=== PATIENT | female | born 1950 | race Hispanic/Latino ===

== ENCOUNTER 2017-10-11 11:07 | Outpatient (CLI) | payer MEDICARE ==
--- NOTE | 2017-10-11 14:34 | MRI ---
MRI RIGHT SHOULDER WITHOUT CONTRAST: HISTORY: M25.51, right shoulder pain, rotator cuff tear. COMPARISON: None. FINDINGS: BICEPS TENDON: There is moderate extraarticular tenosynovitis. There is marked thickening in the intraarticular bic eps tendon. LABRUM: The labrum is intact without tear. ROTATOR CUFF: Full-thickness, full-width tear supraspinatus tendon. There is moderate interstitial and under surfa ce fraying and tearing of the infraspinatus tendon. The supraspinatus tendon fibers are markedly fra yed and are at the level of the mid humeral head with a gap of 2.1 cm. SOFT TISSUES: There is extensive synovitis of the subscapular bursa. Large subacromial/subdeltoid bursal effusion. BONES: Type I acromion. No acute fracture. MUSCLES: Less than 50% atrophy of the supraspinatus muscle. IMPRESSION: 1. Full-thickness full-width tear of the supraspinatus tendon with a 2.1 cm gap with fiber edge at t he mid humeral head. There is extensive fraying and tendinosis of the tendon fibers. 2. Severe intraarticular tendinosis of the biceps tendon with the size being larger than what would fit through the normal rotator interval and likely causing an impingement. 3. Large joint effusion with extensive synovitis. 4. Moderate-sized subacromial/subdeltoid bursal effusion. 5. Intact glenoid labrum. 6. Only mild atrophy of the supraspinatus muscle. POS: [facility]
== END 2017-10-11 11:08 | disposition home or self-care (01) ==
LOC: MRI 11:07
PROVIDERS: ATTEND Orthopaedic Surgery
DX: M25.511 Pain in right shoulder (principal); S46.811A Strain of other muscles, fascia and tendons at shoulder and upper arm level, right arm, initial encounter; M75.21 Bicipital tendinitis, right shoulder; M25.411 Effusion, right shoulder; M65.811 Other synovitis and tenosynovitis, right shoulder; S43.431A Superior glenoid labrum lesion of right shoulder, initial encounter; M89.8X1 Other specified disorders of bone, shoulder

== ENCOUNTER 2017-11-23 09:48 | Outpatient (CLI) | payer MEDICARE ==
[2017-11-23 10:27] LABS: Hemoglobin 14.3 g/dL (12.0-16.0); Mean Corpuscular HGB CONC 33.7 g/dL (32.0-36.0); Mean Corpuscular Hemoglobin 30.6 pg (27.0-31.0); Mean Corpuscular Volume 90.9 fl (81.0-99.0); Mean Platelet Volume 9.1 fL (7.4-10.4); Platelet Count 185 thou/uL (130-400); RBC Distribution Width 12.3 % (11.5-14.5); Red Blood Cell (RBC) Count 4.65 mill/uL (4.20-5.40); White Blood Cell (WBC) Count 5.3 thou/uL (4.8-10.8)
[2017-11-23 10:28] LABS: Bilirubin Negative (Negative); Blood, Urine Negative (Negative); Clarity CLEAR (Clear); Glucose, Urine (Dipstick) Negative (Negative); Leukocyte Small (Negative); Nitrite Negative (Negative); Protein, Urine (Dipstick) Negative (Neg-Trace); Specific Gravity, Urine 1.021 (1.002-1.036); Urobilinogen 0.2 mg/dL (0.2-1.0)
[2017-11-23 10:31] LABS: Bacteria/HPF None Seen HPF (None Seen); Hyaline Casts/LPF 0-3 HYALINE CAST LPF (0-3 Hyaline); Pathc Cast-AUWi Flag 0.13 (0-2.49); Squamous Epithelial 0-3 HPF (0-3)
[2017-11-23 10:41] LABS: Anion Gap 10 mmol/L (10-20); BUN (Urea Nitrogen) 11 mg/dL (9.8-20.1); Calc. Creatinine Clearance 0 mL/min (70-130); Calcium 9.6 mg/dL (7.8-10.44); Carbon Dioxide 30 mmol/L (23-31); Chloride 104 mmol/L (98-107); Estimated GFR-MDRD 85; Glucose 171 mg/dL (80-115); Potassium 3.9 mmol/L (3.5-5.1); Sodium 140 mmol/L (136-145)
--- NOTE | 2017-11-23 16:01 | EKG ---
Test Reason : Blood Pressure : / mmHG Vent. Rate : 071 BPM Atrial Rate : 071 BPM P-R Int : 170 ms QRS Dur : 082 ms QT Int : 422 ms P-R-T Axes : 029 022 077 degrees QTc Int : 458 ms Normal sinus rhythm Low voltage QRS Nonspecific T wave abnormality Abnormal ECG Confirmed by WENDY CHOU ([id number]) on 11/23/2017 4:01:11 PM Referred By: CLARITA Confirmed By:WENDY CHOU
== END 2017-11-23 09:49 | disposition home or self-care (01) ==
LOC: LABBT 09:48
PROVIDERS: ATTEND Orthopaedic Surgery
DX: Z01.818 Encounter for other preprocedural examination (principal); M75.101 Unspecified rotator cuff tear or rupture of right shoulder, not specified as traumatic
CPT/HCPCS: 80048; 81001; 85027; 93005; 93010

== ENCOUNTER 2017-11-25 05:41 | Day surgery (SDC) | payer MEDICARE ==
[2017-11-23 10:21] VITALS: BMI 30.9
[2017-11-25] MEDS ORDERED: CEFAZOLIN/Water 2 GM/20 ML SYRINGE ONE (06:27)
[2017-11-25] MEDS ORDERED: Lidocaine 1% (PF) 30 ML VIAL ONE (06:30)
[2017-11-25] MEDS ORDERED: Midazolam HCl 2 mg/2 ml Vial ONE (06:30)
[2017-11-25] MEDS ORDERED: Fentanyl 100 MCG/2 ML VIAL ONE (06:30)
[2017-11-25] MEDS ORDERED: Lidocaine 1% w/Epinephrine 1:200K 30 ML VIAL ONE (06:32)
[2017-11-25] MEDS ORDERED: traMADol HCl 50 MG TAB PO PRN ×2 (06:56)
[2017-11-25] MEDS ORDERED: Ropivacaine 0.2% 550 ML 550 ML NERVE BLCK SCH (06:56)
[2017-11-25] MEDS ORDERED: HYDROcodone/Acetaminophen 10/325 mg Tablet PO PRN ×2 (06:56)
[2017-11-25] MEDS ORDERED: Ondansetron HCl/PF 4 MG/2 ML Vial IVP PRN (06:56)
[2017-11-25] MEDS ORDERED: Ketorolac Tromethamine 30 MG/ML VIAL IVP PRN (06:56)
[2017-11-25] MEDS ORDERED: Zolpidem Tartrate 5 MG TAB PO PRN (06:56)
[2017-11-25] MEDS ORDERED: Promethazine HCl 25 MG/ML VIAL IM PRN (06:56)
[2017-11-25] MEDS ORDERED: Fentanyl 100 MCG/2 ML VIAL IV PRN (06:58)
[2017-11-25] MEDS ORDERED: Ropivacaine 0.2% HCl/PF (40 MG/20 ML VIAL) ONE (16:34)
[2017-11-25] MEDS ORDERED: Ropivacaine 0.5% HCl/PF (150 MG/30 ML VIAL) ONE (16:34)
[2017-11-25] MEDS ORDERED: Glycopyrrolate 0.2 MG/ML 5 ML SYRINGE ONE (16:51)
[2017-11-25] MEDS ORDERED: Ketorolac Tromethamine 30 MG/ML VIAL ONE (16:51)
[2017-11-25] MEDS ORDERED: PROPOFOL 200 MG/20 ML VIAL ONE (16:51)
[2017-11-25] MEDS ORDERED: PHENYLEPHRINE-NS 100 MCG/ML 10 ML SYRINGE ONE (16:51)
[2017-11-25] MEDS ORDERED: Dexamethasone 20 MG/5 ML VIAL ONE (16:51)
[2017-11-25] MEDS ORDERED: Ondansetron HCl/PF 4 MG/2 ML Vial ONE (16:51)
[2017-11-25] MEDS ORDERED: Lidocaine 1% PF 5 ML VIAL ONE (16:51)
--- NOTE | 2017-11-25 21:24 | OP ---
DATE OF PROCEDURE: 11/25/2017 PREOPERATIVE DIAGNOSES: 1. Right rotator cuff tear. 2. Biceps tendinosis. 3. Grade 1 atrophy. POSTOPERATIVE DIAGNOSES: 1. Right full thickness supraspinatus tear with retraction to joint line. 2. Right full thickness infraspinatus tear with retraction to joint line, biceps tendonopathy greate r than 30% partial tearing subscapularis. PROCEDURES PERFORMED: 1. Right arthroscopic rotator cuff repair. 2. Biceps tenotomy. STAFF: Phil Sawant M.D. CHORAL DIRECTOR: Giovanny Hatch PA-C. ANESTHESIA: Dr. Mock. The patient received general endotracheal intubation with interscalene block . ESTIMATED BLOOD LOSS: 30 mL TOURNIQUET TIME: None. IMPLANTS: x3 5.5 corkscrews and x2 4.75 SwiveLocks. ANTIBIOTICS: Ancef 2 grams. COMPLICATIONS: None. HISTORY OF PRESENT ILLNESS: Ms. Sheffield is a pleasant 67-year-old female who presented to me with r ight shoulder pain. The patient is a right-hand dominant hairdresser. She fell back in 08/07/2017, she continued to have pain and taking conservative care, but continued to have pain despite nonoperat kwaku intervention. The patient had MRI evidence of a right full thickness supraspinatus and infraspin atus tear with retraction to the joint line. I discussed with patient, some biceps tendinopathy, acr omioclavicular joint degenerative changes. I discussed with patient the risks and benefits of arthro scopic right rotator cuff repair with biceps tenotomy versus tenodesis, subacromial decompression. I discussed risks and benefits to pain, scar, bleeding, infection, damage to vital structures, failure of repair, need for further surgeries, damage to vital structures, loss of life or limb. The patien t understood these risks and benefits and elected to proceed. DESCRIPTION OF PROCEDURE: Timeout was performed designating the patient's right upper extremity as t he operative site based on sight, consents, markings. After completion of timeout, the patient's rig ht upper extremity was prepped and draped in a sterile fashion. Posterior working portal and anterio r working portal was placed. Patient has some significant synovitis and inflammation around the cuff . There was a full thickness tear, which was obvious upon entering and looking up and seeing the sup raspinatus, infraspinatus gone. The biceps was about 30% torn and had fraying throughout and did not feel healthy, so it was tenotomized. Subscap had some superior tearing. I controlled bleeding, mov ed subacromially, debrided off all the bursa to expose. I pulled on the cuff and it went close to it s footprint, but did not fill the entire lateral aspect of the tuberosity, so therefore I took my bur and burred the bone for bleeding bone as well as help take off about 2-4 mm of articular cartilage f or better footprint. After completion of this, I placed 3 total anchors one suture limb and 2 posteriorly. I passed all 10 suture limbs through 5 horizontal mattress sutures from front to back a nd tied from back to front, took a single limb of each and did a transosseous equivalent double row w ith 4.75 SwiveLocks. The patient's cuff was approximated. It was not perfectly repaired, but I was happy with the overall approximation, I then washed and closed with 3-0 nylon. The patient's outlook is guarded given her medical history, her profession, her diabetes, what appear s to be a chronicity and size of the tear. We will continue to follow nonoperatively for typical pos top protocol. She will be sent home with pain medications and block per Anesthesia. She will follow up in my clinic in 10-14 days.
== END 2017-11-25 11:48 | disposition home or self-care (01) ==
LOC: SDC 05:41
PROVIDERS: ATTEND Orthopaedic Surgery
PROC: 0LM14ZZ Reattachment of Right Shoulder Tendon, Percutaneous Endoscopic Approach (ICD-10-PCS; principal; 2017-11-25)
DX: M75.121 Complete rotator cuff tear or rupture of right shoulder, not specified as traumatic (principal); M75.21 Bicipital tendinitis, right shoulder; E78.00 Pure hypercholesterolemia, unspecified; E11.9 Type 2 diabetes mellitus without complications; E03.9 Hypothyroidism, unspecified; K21.9 Gastro-esophageal reflux disease without esophagitis; G89.29 Other chronic pain; M54.9 Dorsalgia, unspecified; Z87.442 Personal history of urinary calculi; Z79.84 Long term (current) use of oral hypoglycemic drugs; Z79.899 Other long term (current) drug therapy; Z88.0 Allergy status to penicillin; Z90.49 Acquired absence of other specified parts of digestive tract; Z98.890 Other specified postprocedural states
CPT/HCPCS: 29827; A4306; C1713; J1100; J1885; J2001; J2250; J2405; J2704; J2795; J3010

== ENCOUNTER 2018-06-27 11:26 | Outpatient (CLI) | payer MEDICARE | END 2018-06-27 11:27 | disposition home or self-care (01) | LOC: BICMAMMO 11:26 | PROVIDERS: ATTEND Internal Medicine | DX: Z12.31 Encounter for screening mammogram for malignant neoplasm of breast (principal); Z80.3 Family history of malignant neoplasm of breast | CPT/HCPCS: 77063; 77067 ==

== ENCOUNTER 2018-11-21 19:30 | Outpatient (CLI) | payer MEDICARE | END 2018-11-21 19:31 | disposition home or self-care (01) | LOC: SLEEPLAB 19:30 | PROVIDERS: ATTEND Internal Medicine | DX: G47.33 Obstructive sleep apnea (adult) (pediatric) (principal); G47.00 Insomnia, unspecified; R06.83 Snoring; E11.9 Type 2 diabetes mellitus without complications; G47.10 Hypersomnia, unspecified | CPT/HCPCS: 95810 ==

== ENCOUNTER 2018-12-26 20:30 | Outpatient (CLI) | payer MEDICARE | END 2018-12-26 20:31 | disposition home or self-care (01) | LOC: SLEEPLAB 20:30 | PROVIDERS: ATTEND Internal Medicine | DX: G47.33 Obstructive sleep apnea (adult) (pediatric) (principal); E11.9 Type 2 diabetes mellitus without complications; E66.9 Obesity, unspecified; G47.00 Insomnia, unspecified; R06.83 Snoring | CPT/HCPCS: 95811 ==

== ENCOUNTER 2019-06-30 12:12 | Outpatient (CLI) | payer MEDICARE ==
--- NOTE | 2019-06-30 13:28 | MMO ---
Bilateral MAMMO Bilat Screen [facility]. CLINICAL HISTORY: Patient is 68 years old and is seen for screening. The patient has the following family history of breast cancer: sister, malignant (generic). The patient has no personal history of cancer. VIEWS: The views performed were: bilateral craniocaudal with tomosynthesis and bilateral mediolateral oblique with tomosynthesis. FILMS COMPARED: The present examination has been compared to prior imaging studies performed at [facility] on 05/28/2014, 08/17/2015, 08/18/2016 and 06/27/2018. This study has been interpreted with the assistance of computer-aided detection. MAMMOGRAM FINDINGS: There are scattered fibroglandular densities. There are stable benign appearing calcifications seen in both breasts. There are also vascular calcifications. There are no suspicious masses, suspicious calcifications, or new areas of architectural distortion. IMPRESSION: THERE IS NO MAMMOGRAPHIC EVIDENCE OF MALIGNANCY. A ROUTINE FOLLOW-UP MAMMOGRAM IN 1 YEAR IS RECOMMENDED. THE RESULTS OF THIS EXAM WERE SENT TO THE PATIENT. ACR BI-RADS Category 2 - Benign finding MAMMOGRAPHY NOTE: 1. A negative mammogram report should not delay a biopsy if a dominant of clinically suspicious mass is present. 2. Approximately 10% to 15% of breast cancers are not detected by mammography. 3. Adenosis and dense breasts may obscure an underlying neoplasm. Reported by: ELIZABETH KUMAR MD Electonically Signed: [id number]
== END 2019-06-30 12:13 | disposition home or self-care (01) ==
LOC: BICMAMMO 12:12
PROVIDERS: ATTEND Internal Medicine
DX: Z12.31 Encounter for screening mammogram for malignant neoplasm of breast (principal); Z80.3 Family history of malignant neoplasm of breast
CPT/HCPCS: 77063; 77067

== ENCOUNTER 2020-07-01 12:57 | Outpatient (CLI) | payer MEDICARE ==
--- NOTE | 2020-07-01 13:22 | MMO ---
Bilateral MAMMO Bilat Screen [facility]. CLINICAL HISTORY: Patient is 69 years old and is seen for screening. The patient has the following family history of breast cancer: sister, malignant (generic). The patient has no personal history of cancer. VIEWS: The views performed were: bilateral craniocaudal with tomosynthesis and bilateral mediolateral oblique with tomosynthesis. FILMS COMPARED: The present examination has been compared to prior imaging studies performed at [facility] on 08/17/2015, 08/18/2016, 06/27/2018 and 06/30/2019. This study has been interpreted with the assistance of computer-aided detection. MAMMOGRAM FINDINGS: There are scattered fibroglandular densities. There are benign appearing calcifications seen in both breasts. There are no suspicious masses, suspicious calcifications, or new areas of architectural distortion. IMPRESSION: THERE IS NO MAMMOGRAPHIC EVIDENCE OF MALIGNANCY. A ROUTINE FOLLOW-UP MAMMOGRAM IN 1 YEAR IS RECOMMENDED. THE RESULTS OF THIS EXAM WERE SENT TO THE PATIENT. ACR BI-RADS Category 2 - Benign finding MAMMOGRAPHY NOTE: 1. A negative mammogram report should not delay a biopsy if a dominant of clinically suspicious mass is present. 2. Approximately 10% to 15% of breast cancers are not detected by mammography. 3. Adenosis and dense breasts may obscure an underlying neoplasm. Reported by: ERWIN MILLER MD Electonically Signed: [id number]
== END 2020-07-01 12:58 | disposition home or self-care (01) ==
LOC: BICMAMMO 12:57
PROVIDERS: ATTEND Internal Medicine
DX: Z12.31 Encounter for screening mammogram for malignant neoplasm of breast (principal); Z80.3 Family history of malignant neoplasm of breast
CPT/HCPCS: 77063; 77067

== ENCOUNTER 2020-12-31 08:21 | Outpatient (CLI) | payer MEDICARE | END 2020-12-31 08:22 | disposition home or self-care (01) | LOC: BICULT 08:21 | PROVIDERS: ATTEND Internal Medicine | DX: R10.10 Upper abdominal pain, unspecified (principal); R93.2 Abnormal findings on diagnostic imaging of liver and biliary tract; Z90.49 Acquired absence of other specified parts of digestive tract | CPT/HCPCS: 93975 ==

== ENCOUNTER 2021-01-13 14:36 | Outpatient (CLI) | payer MEDICARE ==
[2021-01-13] MEDS ORDERED: Iopamidol 370 76% 100 ML VIAL ONE (14:47)
== END 2021-01-13 14:37 | disposition home or self-care (01) ==
LOC: BICCT 14:36
PROVIDERS: ATTEND Internal Medicine Gastroenterology
DX: R10.12 Left upper quadrant pain (principal); R94.5 Abnormal results of liver function studies; R19.4 Change in bowel habit; K57.30 Diverticulosis of large intestine without perforation or abscess without bleeding; I86.8 Varicose veins of other specified sites
CPT/HCPCS: 74177; Q9967

== ENCOUNTER 2021-03-10 07:04 | Day surgery (SDC) | payer MEDICARE ==
[2021-03-07 11:15] VITALS: BMI 29.2
[2021-03-10 07:27] LABS: #Basophils 0.1 thou/uL (0.0-0.2); #Eosinphils 0.2 thou/uL (0.0-0.7); #Lymphocytes 3.8 thou/uL (1.20-3.40); #Monocytes 0.6 thou/uL (0.11-0.59); #Neutrophils 3.1 thou/uL (1.40-6.50); %Basophils 1.2 % (0.0-1.0); %Eosinophils 2.1 % (0.0-10.0); %Monocytes 7.1 % (0.0-10.0); %Neutrophils 40.6 % (42.0-75.0); Hemoglobin 13.8 g/dL (12.0-16.0); Mean Corpuscular Volume 93.9 fL (78.0-98.0); Mean Platelet Volume 8.9 fL (7.4-10.4); Platelet Count 159 thou/uL (130-400); RBC Distribution Width 12.2 % (11.5-14.5); Red Blood Cell (RBC) Count 4.47 mill/uL (4.20-5.40); White Blood Cell (WBC) Count 7.7 thou/uL (4.8-10.8)
[2021-03-10 07:36] LABS: INR-International Normal Ratio 0.9; PTT 25.3 sec (22.9-36.1); Prothrombin Time 12.5 sec (12.0-14.7)
[2021-03-10 08:47] VITALS: BP 116/60; TEMP 97.7
[2021-03-10] MEDS ORDERED: Lidocaine 1% PF 5 ML VIAL ONE (08:49)
[2021-03-10] MEDS ORDERED: Fentanyl 100 MCG/2 ML VIAL ONE (08:49)
[2021-03-10] MEDS ORDERED: Sodium Bicarbonate 2.5 MEQ/5 ML VIAL ONE (08:49)
[2021-03-10] MEDS ORDERED: Midazolam HCl 2 mg/2 ml Vial ONE (08:49)
[2021-03-10] MEDS ORDERED: Sodium Chloride 0.9% 10 ML ONE (10:34)
== END 2021-03-10 10:15 | disposition home or self-care (01) ==
LOC: ULT 07:04
PROVIDERS: ATTEND Internal Medicine Gastroenterology
PROC: 0FB23ZX Excision of Left Lobe Liver, Percutaneous Approach, Diagnostic (ICD-10-PCS; principal; 2021-03-10)
DX: K75.81 Nonalcoholic steatohepatitis (NASH) (principal); K74.02 Hepatic fibrosis, advanced fibrosis; G47.33 Obstructive sleep apnea (adult) (pediatric); E11.9 Type 2 diabetes mellitus without complications; E07.9 Disorder of thyroid, unspecified; J30.1 Allergic rhinitis due to pollen; Z79.84 Long term (current) use of oral hypoglycemic drugs; Z79.899 Other long term (current) drug therapy; Z88.8 Allergy status to other drugs, medicaments and biological substances
CPT/HCPCS: 47000; 76942; 85025; 85610; 85730; 88307; 88313; J2250; J3010

== ENCOUNTER 2021-08-07 11:13 | Outpatient (CLI) | payer MEDICARE | END 2021-08-07 11:14 | disposition home or self-care (01) | LOC: BICMAMMO 11:13 | PROVIDERS: ATTEND Internal Medicine | DX: Z12.31 Encounter for screening mammogram for malignant neoplasm of breast (principal); Z80.3 Family history of malignant neoplasm of breast | CPT/HCPCS: 77063; 77067 ==

== ENCOUNTER 2021-08-08 15:12 | Outpatient (CLI) | payer MEDICARE | END 2021-08-08 15:13 | disposition home or self-care (01) | LOC: BICMAMMO 15:12 | PROVIDERS: ATTEND Internal Medicine | DX: Z13.820 Encounter for screening for osteoporosis (principal); Z78.0 Asymptomatic menopausal state; Z98.890 Other specified postprocedural states | CPT/HCPCS: 77080 ==

== ENCOUNTER 2023-06-15 14:55 | Outpatient (CLI) | payer MEDICARE | END 2023-06-15 14:56 | disposition home or self-care (01) | LOC: BICMAMMO 14:55 | PROVIDERS: ATTEND Internal Medicine | DX: Z12.31 Encounter for screening mammogram for malignant neoplasm of breast (principal); N64.89 Other specified disorders of breast; Z80.3 Family history of malignant neoplasm of breast | CPT/HCPCS: 77063; 77067 ==

== ENCOUNTER → 2023-07-12 | Day surgery (SDC) | payer MEDICARE | LOC: BICULT 12:23 | PROVIDERS: ATTEND Internal Medicine | PROC: 0H9T0ZX Drainage of Right Breast, Open Approach, Diagnostic (ICD-10-PCS; principal; 2023-07-12) | PROC: 07B50ZX Excision of Right Axillary Lymphatic, Open Approach, Diagnostic (ICD-10-PCS; 2023-07-12) | DX: C50.511 Malignant neoplasm of lower-outer quadrant of right female breast (principal) | CPT/HCPCS: 19083; 38505; 88305; 88341; 88342 ==

== ENCOUNTER 2023-07-28 11:00 | Outpatient (CLI) | payer MEDICARE | END 2023-07-28 11:01 | disposition home or self-care (01) | LOC: PET 11:00 | PROVIDERS: ATTEND Internal Medicine Hematology & Oncology | DX: C50.511 Malignant neoplasm of lower-outer quadrant of right female breast (principal); C77.9 Secondary and unspecified malignant neoplasm of lymph node, unspecified; E11.9 Type 2 diabetes mellitus without complications | CPT/HCPCS: 78815; A9552 ==

== ENCOUNTER 2023-08-10 11:05 | Outpatient (CLI) | payer MEDICARE ==
[2023-08-10 12:11] LABS: #Eosinphils 0.1 10x3/uL (0.0-0.5); #Monocytes 0.4 10x3/uL (0.0-1.1); #Neutrophils 2.5 10x3/uL (1.5-8.4); %Basophils 0.7 % (0.0-2.0); %Lymphocytes 43.2 % (18.0-47.0); %Monocytes 7.7 % (0.0-10.0); %Neutrophils 45.7 % (40.0-75.0); Hematocrit 40.7 % (34.9-44.5); Hemoglobin 13.8 g/dL (12.0-15.5); Mean Corpuscular HGB CONC 33.9 g/dL (32.0-36.0); Mean Corpuscular Volume 91.5 fl (81.6-98.3); Mean Platelet Volume 11.7 fl (7.4-10.4); Platelet Count 141 10x3/uL (150-450); RBC Distribution Width 13.5 % (11.5-14.5); Red Blood Cell (RBC) Count 4.45 10x6/uL (3.90-5.03); White Blood Cell (WBC) Count 5.4 10x3/uL (3.5-10.5)
[2023-08-10 12:40] LABS: Anion Gap 12 mmol/L (10-20); BUN (Urea Nitrogen) 11 mg/dL (9.8-20.1); Calc. Creatinine Clearance 0 mL/min (70-130); Carbon Dioxide 25 mmol/L (23-31); Chloride 104 mmol/L (98-107); Estimated GFR 94; Glucose 181 mg/dL (83-110); Potassium 3.8 mmol/L (3.5-5.1); Sodium 137 mmol/L (136-145)
== END 2023-08-10 11:06 | disposition home or self-care (01) ==
LOC: LABBT 11:05
PROVIDERS: ATTEND Specialist
DX: Z01.818 Encounter for other preprocedural examination (principal); C50.911 Malignant neoplasm of unspecified site of right female breast
CPT/HCPCS: 71046; 80048; 85025; 93005; 93010

== ENCOUNTER 2023-08-17 08:43 | Day surgery (SDC) | payer MEDICARE ==
[2023-08-10 11:29] VITALS: BMI 31.3
[2023-08-17] MEDS ORDERED: Acetaminophen 500 MG TAB ONE ×2 (09:08→16:58)
[2023-08-17] MEDS ORDERED: Sodium Chloride 0.9% 100 ML ONE (09:08)
[2023-08-17] MEDS ORDERED: Ketorolac Tromethamine 30 MG/ML VIAL ONE (09:08)
[2023-08-17] MEDS ORDERED: CEFAZOLIN 2 GM VIAL ONE (09:08)
[2023-08-17] MEDS ORDERED: Isosulfan Blue 50 MG/5 ML VIAL ONE (12:29)
[2023-08-17] MEDS ORDERED: EPINEPHrine 1 MG/ML VIAL ONE (12:30)
[2023-08-17] MEDS ORDERED: Bupivacaine 0.25% HCL 30 ML VIAL ONE (12:30)
[2023-08-17] MEDS ORDERED: PROPOFOL 20 ML ONE (12:33)
[2023-08-17] MEDS ORDERED: fentaNYL 50 mcg/mL 1 mL Vial ONE (12:33)
[2023-08-17] MEDS ORDERED: Lidocaine 1% PF 5 ML VIAL ONE ×2 (12:34→12:53)
[2023-08-17] MEDS ORDERED: ePHEDrine Sulfate 50 MG/10 ML VIAL ONE ×2 (12:53→13:21)
[2023-08-17] MEDS ORDERED: PROPOFOL 200 MG/20 ML VIAL ONE (12:53)
[2023-08-17] MEDS ORDERED: Ondansetron PF 4 MG/2 ML Vial ONE ×2 (12:53→14:12)
[2023-08-17] MEDS ORDERED: PHENYLEPHRINE-NS 100 MCG/ML 10 ML SYRINGE ONE ×2 (12:53→14:35)
[2023-08-17] MEDS ORDERED: Lidocaine 2% PF 5 ML VIAL ONE (13:20)
== END 2023-08-17 17:06 | disposition home or self-care (01) ==
LOC: SDC 08:43
PROVIDERS: ATTEND Specialist
PROC: 0HBT0ZZ Excision of Right Breast, Open Approach (ICD-10-PCS; principal; 2023-08-17)
PROC: 07B50ZZ Excision of Right Axillary Lymphatic, Open Approach (ICD-10-PCS; 2023-08-17)
DX: C50.311 Malignant neoplasm of lower-inner quadrant of right female breast (principal); C77.3 Secondary and unspecified malignant neoplasm of axilla and upper limb lymph nodes; Z17.0 Estrogen receptor positive status [ER+]; E78.00 Pure hypercholesterolemia, unspecified; E11.9 Type 2 diabetes mellitus without complications; Z88.0 Allergy status to penicillin; Z79.84 Long term (current) use of oral hypoglycemic drugs; Z79.899 Other long term (current) drug therapy
CPT/HCPCS: 19301; 38505; 76098; C1713; J0171; J3010; 88307; 88342; J1885; J2001; J2405; J2704; J3490; Q9968; S0020

== ENCOUNTER 2023-09-02 10:55 | Day surgery (SDC) | payer MEDICARE ==
[2023-09-01 10:31] VITALS: BMI 31.3
[2023-09-02] MEDS ORDERED: Ketorolac Tromethamine 30 MG/ML VIAL ONE (12:59)
[2023-09-02] MEDS ORDERED: Acetaminophen 500 MG TAB ONE (12:59)
[2023-09-02] MEDS ORDERED: EPINEPHrine 1 MG/ML VIAL ONE (15:23)
[2023-09-02] MEDS ORDERED: Bupivacaine 0.25% HCL 30 ML VIAL ONE (15:24)
[2023-09-02] MEDS ORDERED: fentaNYL PF 100 MCG/2 ML SYRINGE ONE (15:31)
[2023-09-02] MEDS ORDERED: PROPOFOL 20 ML ONE (15:31)
[2023-09-02] MEDS ORDERED: Dexamethasone 4 mg/ml Vial ONE (15:33)
[2023-09-02] MEDS ORDERED: Lidocaine 1% PF 5 ML VIAL ONE ×2 (15:33→15:54)
[2023-09-02] MEDS ORDERED: Ondansetron PF 4 MG/2 ML Vial ONE (15:33)
[2023-09-02] MEDS ORDERED: Lidocaine 2% 6 ML (Jelly) SYR ONE (15:35)
[2023-09-02] MEDS ORDERED: PHENYLEPHRINE-NS 100 MCG/ML 10 ML SYRINGE ONE ×2 (15:35→15:54)
[2023-09-02] MEDS ORDERED: Sodium Chloride 0.9% 100 ML ONE (15:39)
[2023-09-02] MEDS ORDERED: CEFAZOLIN 2 GM VIAL ONE (15:39)
[2023-09-02] MEDS ORDERED: PROPOFOL 200 MG/20 ML VIAL ONE (15:54)
== END 2023-09-02 18:06 | disposition home or self-care (01) ==
LOC: SDC 10:55
PROVIDERS: ATTEND Specialist
PROC: 0JH63WZ Insertion of Totally Implantable Vascular Access Device into Chest Subcutaneous Tissue and Fascia, Percutaneous Approach (ICD-10-PCS; principal; 2023-09-02)
DX: C50.911 Malignant neoplasm of unspecified site of right female breast (principal); E11.9 Type 2 diabetes mellitus without complications; E78.00 Pure hypercholesterolemia, unspecified; E07.9 Disorder of thyroid, unspecified; Z79.84 Long term (current) use of oral hypoglycemic drugs
CPT/HCPCS: 36561; 71045; C1788; J0171; J1100; J1642; J1885; J2405; J2704; J3490; S0020

== ENCOUNTER 2024-08-07 13:27 | Outpatient (CLI) | payer MEDICARE | END 2024-08-07 13:28 | disposition home or self-care (01) | LOC: BICMAMMO 13:27 | PROVIDERS: ATTEND Internal Medicine Hematology & Oncology | DX: N64.89 Other specified disorders of breast (principal) | CPT/HCPCS: 77066; G0279 ==